=== PATIENT | female | born 1980 | race Caucasian/White ===

== ENCOUNTER 2022-05-21 08:50 | Emergency (ER) | payer OTHER, SELFPAY ==
[2022-05-21 09:04] VITALS: BP 147/89; PULSE 102; RESP 16; TEMP 36.1; O2SAT 100
--- NOTE | 2022-05-21 09:38 | ED.GENADULT ---
HPI - General Adult General Chief complaint: Nausea/Vomiting/Diarrhea Stated complaint: vomitting, nausea, sore throat Time Seen by Provider: 05/21/22 09:38 Source: patient, RN notes reviewed and old records reviewed Mode of arrival: ambulatory Limitations: no limitations History of Present Illness HPI narrative: 41-year-old female presents to [facility] with complaints of one week ago and had nausea and vomiting with some mild upper epigastric discomfort. Patient states that abdominal pain has generally subsided will occasionally get cramping sensation in upper left abdomen area. Patient reports that she has mild sore throat and continues to have intermittent nausea. Patient reports that she has had multiple strep exposures and concerned for strep throat. Patient also reports some seasonal allergies but has not started back on her Flonase. MD complaint: sore throat, nausea Onset (ago): week(s) (1) Related Data Allergies Allergy/AdvReac Type Severity Reaction Status Date / Time Penicillins Allergy Unknown Verified 05/21/22 09:26 Review of Systems Review of Systems: CONSTITUTIONAL: Denies fever, chills, or sweats. EYES: Denies visual changes, redness, or discharge. ENT: Reports rhinorrhea,mild congestion, sore throat, no otalgia. CARDIOVASCULAR: Denies chest pain, palpitations, or edema. RESPIRATORY: Denies cough or dyspnea. GASTROINTESTINAL: Denies abdominal pain at present previous episodes of upper epigastric discomfort , positive for nausea, no recent vomiting, no diarrhea. GENITOURINARY: Denies dysuria or hematuria. SKIN: Denies rash or itching. MUSCULOSKELETAL: Denies back pain, joint pain, or myalgia. NEUROLOGIC: Denies headache, numbness, or weakness. PSYCHIATRIC: Denies anxiety or depression. All systems reviewed & are unremarkable except as noted in HPI and below [facility] Past Medical History Medical History (Updated 05/22/22 @ 09:02 by Svetlana Sahu NP) Seasonal allergies Surgical History Surgical History (Updated 05/21/22 @ 09:55 by Svetlana Sahu NP) Hx of lymph node excision right neck Social History Social History (Updated 05/21/22 @ 09:53 by Svetlana Sahu NP) Smoking status: Never smoker Alcohol intake: current Alcohol use details: rare social Substance use: never Substance use type: does not use Gender identity (if verbalized by the patient): Female Comments At time of signature, agree with nursing past medical, surgical, social and family history. There is no relevant family history pertinent to the presenting complaint Exam Narrative: GENERAL: Well-appearing, well-nourished, and in no acute distress. HEAD: Normocephalic, atraumatic. EYES: PERRLA and EOMI. ENT: Nares with mild redness,clear rhinorrhea no epistaxis. Mucous membranes moist.TM's normal with good light reflex, throat with some redness no tonsil enlargement, post nasal drainage present. NECK: Supple.no lymphadenopathy CHEST: Clear to auscultation. No respiratory distress.SAO2 100% on room air HEART: Regular rate and rhythm. No murmur heard. Normal peripheral pulses. ABDOMEN: Soft, nontender to palpation, nondistended, normal active bowel sounds.nausea with no recent vomiting EXTREMITIES: Normal range of motion. No edema. SKIN: Warm, dry, no rash. NEURO: No focal deficits. Alert and oriented x3. Course Course Emergency Course: Patient is aware of diagnosis, understands and agrees to treatment plan.? Anticipatory guidance given.? Patient agrees to follow-up as directed and is aware of reasons to seek care at the emergency department. Portions of this record may have been created with voice recognition software Level of Care: Express Care Visit Vital Signs Vital signs: Vital Signs Temperature 36.1 C L 05/21/22 09:04 Pulse Rate 102 H 05/21/22 09:04 Respiratory Rate 16 05/21/22 09:04 Blood Pressure 147/89 H 05/21/22 09:04 Pulse Oximetry 100 05/21/22 09:04 Oxygen Delivery Room Air 05/21
== END 2022-05-21 10:12 | disposition home or self-care (01) ==
PROVIDERS: Emergency Provider Registered Nurse
DX: J06.9 Acute upper respiratory infection, unspecified (principal); R11.0 Nausea
CPT/HCPCS: 87081; 87880; 99213; G0463

== ENCOUNTER 2022-09-04 11:15 | Emergency (ER) | payer OTHER, SELFPAY ==
[2022-09-04 11:26] VITALS: BP 128/82; PULSE 94; RESP 16; TEMP 36.8; O2SAT 100
--- NOTE | 2022-09-04 11:57 | ED.SKABFB ---
HPI - Skin/Abscess/Foreign Bdy General Chief complaint: Skin/Abscess/Foreign Body Stated complaint: rash Time Seen by Provider: 09/04/22 11:58 Source: patient Mode of arrival: ambulatory Limitations: no limitations History of Present Illness HPI narrative: 42 y/o female presented for c/o red itchy rash to arms and legs for about 3 weeks. Endorses working outside in the weeds and in the yard frequently. States patches of the rash will appear randomly. Taking Benadryl some days. Takes daily allergy medication. Denies lip, tongue, or throat swelling, shortness of breath or wheezing. Denies changes to soap, detergent, lotion, or any other exposures. No one else in the house or any contacts with similar symptoms. Related Data Allergies Allergy/AdvReac Type Severity Reaction Status Date / Time Penicillins Allergy Unknown Verified 09/04/22 11:49 Review of Systems Review of Systems: CONSTITUTIONAL: Denies body aches, fever, chills, or sweats. EYES: Denies visual changes, redness, or discharge. ENT: Denies rhinorrhea, congestion CARDIOVASCULAR: Denies chest pain, palpitations, or edema. RESPIRATORY: Denies cough or dyspnea. GASTROINTESTINAL: Denies abdominal pain, nausea, vomiting, or diarrhea. SKIN: per HPI MUSCULOSKELETAL: Denies back pain, joint pain, or myalgia. NEUROLOGIC: Denies headache, numbness, tingling, or weakness. [facility] Past Medical History Medical History Seasonal allergies Surgical History Surgical History Hx of lymph node excision right neck Social History Social History Smoking status: Never smoker Alcohol intake: current Alcohol use details: rare social Substance use: never Substance use type: does not use Gender identity (if verbalized by the patient): Female Comments At time of signature, I have reviewed and agree with nursing past medical, surgical, social and family history unless otherwise noted. Please see nursing chart for further information. There is no relevant family history pertinent to the presenting complaint Exam Narrative: GENERAL: Well-appearing HEAD: Normocephalic, atraumatic. EYES: conjunctivae clear, and EOMI. ENT: Mucous membranes moist. Oropharynx without edema, erythema or lesions. NECK: Supple. No lymphadenopathy CHEST: Clear to auscultation. HEART: Regular rate and rhythm. SKIN: Warm, dry. Scattered erythematous vesicular rash patches noted over the arms, legs and torso c/w contact dermatitis. Left upper arm with large area of rash. NEURO: Alert and oriented x3. Course Course Emergency Course: Patient is aware of diagnosis, understands and agrees to treatment plan. Anticipatory guidance given. Patient agrees to follow-up as directed and is aware of reasons to seek care at the emergency department. Portions of this record may have been created with voice recognition software Level of Care: Express Care Visit Vital Signs Vital signs: Vital Signs Temperature 98.2 F 09/04/22 11:26 Pulse Rate 94 09/04/22 11:26 Respiratory Rate 16 09/04/22 11:26 Blood Pressure 128/82 09/04/22 11:26 Pulse Oximetry 100 09/04/22 11:26 Temperature 98.2 F 09/04/22 11:26 Pulse Rate 94 09/04/22 11:26 Respiratory Rate 16 09/04/22 11:26 Blood Pressure 128/82 09/04/22 11:26 Pulse Oximetry 100 09/04/22 11:26 Reviewed MDM - Skin/Abscess/Foreign Bdy MDM Narrative Medical decision making narrative: Discussed physical exam findings c/w contact dermatitis likely r/t poison gladis after working outside with weeds often. Advised supportive measures and signs/symptoms to go to the ER. Pt is appropriate for outpt treatment and f/u. Instructed patient to go to nearest ER immediately for any worsening symptoms including but not limited to: fever, spreading rash, pain
== END 2022-09-04 12:10 | disposition home or self-care (01) ==
PROVIDERS: Emergency Provider Nurse Practitioner Family
DX: L25.9 Unspecified contact dermatitis, unspecified cause (principal)
CPT/HCPCS: 99213; G0463

== ENCOUNTER 2023-02-28 17:29 | Emergency (ER) | payer OTHER, SELFPAY ==
[2023-02-28 17:45] VITALS: BP 134/72; PULSE 74; RESP 16; TEMP 36.6; O2SAT 100
--- NOTE | 2023-02-28 18:12 | ED.URI ---
HPI - URI/Sore Throat General Chief Complaint: Upper Respiratory Infection Stated Complaint: Sore Throat Time Seen by Provider: 02/28/23 18:12 Source: patient Mode of arrival: ambulatory Limitations: no limitations History of Present Illness HPI Narrative: 42-year-old female presents with complaint of nasal congestion, postnasal drainage, sore throat for over week. States sore throat worse at night. Took Sudafed but no improvement. Does not take daily antihistamine. Afebrile. All systems reviewed and negative except as noted above. Related Data Allergies Allergy/AdvReac Type Severity Reaction Status Date / Time Penicillins Allergy Unknown Verified 09/04/22 11:49 Review of Systems Review of Systems: CONSTITUTIONAL: Denies fever, chills, or sweats. EYES: Denies visual changes, redness, or discharge. ENT: Reports rhinorrhea, congestion, sore throat. Denies otalgia. CARDIOVASCULAR: Denies chest pain, palpitations, or edema. RESPIRATORY: Denies cough or dyspnea. GASTROINTESTINAL: Denies abdominal pain, nausea, vomiting, or diarrhea. GENITOURINARY: Denies dysuria or hematuria. SKIN: Denies rash or itching. MUSCULOSKELETAL: Denies back pain, joint pain, or myalgia. NEUROLOGIC: Denies headache, numbness, or weakness. PSYCHIATRIC: Denies anxiety or depression. All other systems reviewed are negative, except as documented in HPI. PMFSH Past Medical History Medical History Seasonal allergies Surgical History Surgical History Hx of lymph node excision right neck Social History Social History Smoking status: Never smoker Alcohol intake: current Alcohol use details: rare social Substance use: never Substance use type: does not use Gender identity (if verbalized by the patient): Female Comments At time of signature, agree with nursing past medical, surgical, social and family history. There is no relevant family history pertinent to the presenting complaint. Exam Narrative: GENERAL: This is a well-nourished, well-developed patient, in no apparent distress. HEAD: normocephalic, atraumatic. EYES: PERRL. Sclera clear/white. Vision is grossly intact. EARS: External ears normal, auditory canals clear and without drainage, fluid to left TM with mild erythema. Right TM normal. Hearing grossly intact. NOSE: External nose normal with Clear nasal drainage, erythema to bilateral nares without significant swelling. THROAT: Mucous membranes moist, Mild erythema postnasal drainage. NECK: Neck supple, non-tender without lymphadenopathy, masses or thyromegaly. CARDIOVASCULAR: Regular rate and rhythm without murmurs, gallops, or rubs. RESPIRATORY: Clear to auscultation. Breath sounds equal bilaterally. No wheezes, rales, or rhonchi. SKIN: warm, Dry, intact with no suspicious lesions or rash, good texture and turgor. NEURO: awake, alert, and oriented to person, place and time. There were no obvious focal neurologic abnormalities. EXTREMITIES: No joint tenderness, effusion, or edema noted. Course Course Level of Care: Express Care Visit Vital Signs Vital signs: Vital Signs Temperature 36.6 C 02/28/23 17:45 Pulse Rate 74 02/28/23 17:45 Respiratory Rate 16 02/28/23 17:45 Blood Pressure 134/72 02/28/23 17:45 Pulse Oximetry 100 02/28/23 17:45 Oxygen Delivery Room Air 02/28/23 17:45 Temperature 36.6 C 02/28/23 17:45 Pulse Rate 74 02/28/23 17:45 Respiratory Rate 16 02/28/23 17:45 Blood Pressure 134/72 02/28/23 17:45 Pulse Oximetry 100 02/28/23 17:45 Oxygen Delivery Room Air 02/28/23 17:45 Reviewed MDM - URI/Sore Throat MDM Narrative Medical decision making narrative: Patient is aware of diagnosis, understands and agrees to treatment plan. Anticipatory guidance given. Patient ag
== END 2023-02-28 18:23 | disposition home or self-care (01) ==
PROVIDERS: Emergency Provider Nurse Practitioner Family
DX: H65.02 Acute serous otitis media, left ear (principal); J01.90 Acute sinusitis, unspecified
CPT/HCPCS: 87081; 87880; 99213; G0463

== ENCOUNTER 2023-10-05 08:46 | Emergency (ER) | payer OTHER, SELFPAY ==
[2023-10-05 09:03] VITALS: BP 144/90; PULSE 64; RESP 16; TEMP 36.3; O2SAT 100
--- NOTE | 2023-10-05 09:41 | ED.EAR ---
HPI - Ear Problem General Chief complaint: Ear Stated complaint: ear fluid Time Seen by Provider: 10/05/23 09:42 Source: patient, RN notes reviewed and old records reviewed Mode of arrival: ambulatory Limitations: no limitations History of Present Illness HPI Narrative: patient presents with complaints of cold symptoms last week, she reports many of these are resolving, but she is complaining of some left ear discomfort that began a couple of days ago. She reports that she has been taking Sudafed with poor relief. Does report small amount of nasal congestion and drainage still, but worst symptom now is her left ear. She reports it is not exactly painful, but it feels full. Reports that hearing is muffled. She denies any fever, chills, sweats. She denies body aches. She voices no other concerns or complaints at this time. Related Data Allergies Allergy/AdvReac Type Severity Reaction Status Date / Time Penicillins Allergy Unknown Verified 10/05/23 09:21 Review of Systems Review of Systems: All systems reviewed & are unremarkable except as noted in HPI and below Constitutional: Constitutional: Reports no additional constitutional complaints ENT: Reports system reviewed and no additional complaints, except as documented, Reports as per HPI, Reports otalgia and Reports nasal discharge Cardiovascular: Cardiovascular: Reports no additional cardiovascular complaints Respiratory: Respiratory: Reports no additional respiratory complaints Gastrointestinal: Gastrointestinal: Reports no additional gastrointestinal complaints PMFSH Past Medical History Medical History Seasonal allergies Surgical History Surgical History Hx of lymph node excision right neck Social History Social History Smoking status: Never smoker Alcohol intake: current Alcohol use details: rare social Substance use: never Substance use type: does not use Gender identity (if verbalized by the patient): Female Comments At the time of my signature, I reviewed and agree with the nursing past medical, surgical, social, and family history. There is no relevant family history pertinent to the patient complaint. Exam Const: General: cooperative, no acute distress, alert and awake Orientation/consciousness: oriented to person, oriented to place and oriented to time HENMT: Head: normal to inspection Ears: TM normal on the right and other ( Left TM with fluid noted behind the drum) Face/Nose/Sinus: No sinus tenderness Mouth: Yes oropharynx normal and Yes moist mucous membranes Throat: posterior oropharynx abnormal Resp: Effort & Inspection: normal respiratory effort and able to speak in complete sentences Auscultation: clear to auscultation bilaterally, no crackles, no rales, no rhonchi and no wheezes Cardio: Palpation: normal PMI Rate: regular rate Rhythm: regular rhythm Heart sounds: S1 normal heart sound present and S2 normal heart sound present Neuro: General: oriented to person, oriented to place and oriented to time Cranial nerves: Yes CN's II-XII intact bilaterally Psych: Appearance: grossly normal Thought process: Normal thought process present Insight: Good insight present (Psych) Judgement: Good judgement present (Psych) Course Course Level of Care: Express Care Visit Vital Signs Vital signs: Vital Signs Temperature 97.4 F L 10/05/23 09:03 Pulse Rate 64 10/05/23 09:03 Respiratory Rate 16 10/05/23 09:03 Blood Pressure 144/90 H 10/05/23 09:03 Pulse Oximetry 100 10/05/23 09:03 Oxygen Delivery Room Air 10/05/23 09:03 Temperature 97.4 F L 10/05/23 09:03 Pulse Rate 64 10/05/23 09:03 Respiratory Rate 16 10/05/23 09:03 Blood Pressure 144/90 H 10/05/23 09:03 Pulse Oximetry 100 10/05/23 09:03 Oxygen Delivery Room Air 10/04
== END 2023-10-05 09:52 | disposition home or self-care (01) ==
PROVIDERS: Emergency Provider Nurse Practitioner Family; Referring Provider Emergency Medicine
DX: J06.9 Acute upper respiratory infection, unspecified (principal)
CPT/HCPCS: 99213; G0463

== ENCOUNTER 2024-11-12 10:03 | Emergency (ER) | payer OTHER, SELFPAY ==
--- OUTSIDE RECORDS SUMMARY | 2024-11-12 10:07 | XMS_ITS | Clinical Summary ---
Author Organization [facility] Address [address] [place] [address] Phone Care Team Providers Care Ep Specialist Name Role Phone Provider, None Primary Care Provider Unavailabl e Allergies Active Allergy Reactions Criticality Noted Date Comments Penicillins Rash 02/28/2020 Immunizations Immunization Administration Dates Next Due Covid-19, Mrna, Lnp-s, Pf, 30 Mcg/0.3 Ml Dose (P fizer) 03/20/2020,02/28/2020 Social History Tobacco Use Types Packs/Day Years Used Date Smoking Tobacco: Never Assessed Comments Unknown Sex and Gender Information Value Date Recorded Sex Assigned at Not on file Legal Sex Female 10:22 PM CDT Gender Identity Not on file Sexual Orientation Not on file Plan of Treatment Health Maintenance Due Date Last Done Comments Hepatitis C Virus (HCV) Screening 1982 TdaP Immunization 1982 Pap Smear 06/16/2003 Human Papillomavirus (HPV) Immunization (1 - 3-dose SCDM series) 2009 Cervical Cancer Screening (CCS) 2012 HPV/Cotest 2012 SARS-COV-2 Immunization ( season) 2023 03/20/2020, 02/28/2020 Influenza Immunization (#1) 2024 Respiratory Syncytial Virus (RSV) Immunization (Adult) (1 - 1-dose 75+ series) 2057 DTaP/Tdap/Td Immunization Discontinued 1996, 08/19/1987, 12/21/1983, Additional history exists Hepatitis B Immunization Completed 998, 09/26/1996, 08/27/1996 Meningococcal Immunization (ACWY) Aged Out No longer eligible based on patient's age to complete this topic Pneumococcal Immunization Combined Aged Out No longer eligible based on patient's age to complete this topic Rotavirus Immunization Aged Out No lo nger eligible based on patient's age to complete this topic Care Teams Ep Specialist Relationship Specialty Start Date End Date Provider, None [place] PCP - General 02/29/20
[2024-11-12 10:12] VITALS: BP 140/95; PULSE 81; RESP 18; TEMP 36.4; O2SAT 100
--- NOTE | 2024-11-12 10:28 | ED.EYEPROB ---
HPI - Eye Problem General Chief complaint: Eye Problems Stated complaint: allergic reaction Time Seen by Provider: 11/12/24 10:28 Source: patient, RN notes reviewed and old records reviewed Mode of arrival: ambulatory Limitations: no limitations History of Present Illness HPI Narrative: 44 year old female who presents to [facility] with complaints of left upper eyelid redness with swelling and some swelling below eye which started Tuesday. Patient reports that she was working in the yard on and then was weed eating and spraying on Tuesday and started noting an episode of eye itching. Patient reports that since Tuesday she has noted swelling and redness to upper left eyelid that has been continuous. Patient reports no change in vision, no redness to sclera or any eye drainage MD chief complaint: eye redness (of left upper eyelid) and other (itching and swelling of left upper eyelid) Onset (ago): day(s) (day 3 of symptoms) Eye Symptoms: itching and other (swelling and redness of left upper eyelid) Severity: mild Treatments Prior to Arrival: other (Zohreh) Related Data Home Medications ?Medication ?Instructions ?Recorded ?Confirmed ?Last Taken ?Type multivitamin (Daily Multi-Vitamin 1 tablet PO DAILY 11/12/24 Unknown History tablet) Allergies Allergy/AdvReac Type Severity Reaction Status Date / Time Penicillins Allergy Unknown Verified 11/12/24 10:19 Review of Systems Review of Systems: CONSTITUTIONAL: Denies fever, chills, or sweats. EYES: Denies visual changes. Reports redness,, irritation, swelling of left upper eyelid, no sclera redness or any drainage from left eye ENT: Denies rhinorrhea, congestion, sore throat, or otalgia. CARDIOVASCULAR: Denies chest pain, palpitations, or edema. RESPIRATORY: Denies cough or dyspnea. SKIN: Denies rash or itching. NEUROLOGIC: Denies headache All systems reviewed & are unremarkable except as noted in HPI and below PMFSH Past Medical History Medical History (Updated 11/13/24 @ 07:58 by Svetlana Sahu NP) Seasonal allergies Surgical History Surgical History (Updated 11/13/24 @ 07:52 by Svetlana Sahu NP) [place] teeth extracted Hx of lymph node excision right neck Social History Social History Smoking status: Never smoker Alcohol intake: current Alcohol use details: rare social Substance use: never Substance use type: does not use Gender identity (if verbalized by the patient): Female Comments At time of signature, agree with nursing past medical, surgical, social and family history. There is no relevant family history pertinent to the presenting complaint Exam Narrative: GENERAL: Well-appearing, well-nourished, and in no acute distress. HEAD: Normocephalic, atraumatic. EYES: PERRLA and EOMI.Left upper eyelid red and swollen and feels irritated, minimal swelling under left eye, No periorbital cellulitis noted. Sclera and conjunctivae clear no drainage noted no visual changes or feelings of foreign body to her eye ENT: Nares clear, no rhinorrhea or epistaxis. Mucous membranes moist. NECK: Supple.no lymphadenopathy CHEST: Clear to auscultation. No respiratory distress, SAO2 100% on room air HEART: Regular rate and rhythm. No murmur heard. Normal peripheral pulses. SKIN: Warm, dry, no rash. NEURO: No focal deficits. Alert and oriented x3. Course Course Emergency Course: Patient is aware of diagnosis, understands and agrees to treatment plan. Anticipatory guidance given. Patient agrees to follow-up as directed and is aware of reasons to seek care at the emergency department. Portions of this record may have been created with voice recognition software Level of Care: Express Care Visit Vital Signs Vital signs: Vital Signs Temperature 36.4 C L 11/12/24 10:12 Pulse Rate 81 11/12/24 10:12 Respiratory Rate 18 11/12/24 10:12 Blood Pressure 140/95 H 11/12/24 10:12 Pulse Oximetry 100 11/12/24 10:12 Oxygen Delivery Room Air 11/12/24 10:12 Temperature 36.4 C L 11/12/24 10:12 Pulse Rate 81 11/12/24 10:12 Respiratory Rate 18 11/12/24 10:12 Blood Pressure 140/95 H 11/12/24 10:12 Pulse Oximetry 11/12/24 10:12 Oxygen Delivery Room Air 11/12/24 10:12 Reviewed MDM - Eye Problem MDM Narrative Medical decision making narrative: Consideration of the following conditions may be warranted for the presenting problem, they are not final diagnoses: Bacterial conjunctivitis, allergic conjunctivitis, viral conjunctivitis, foreign body, blepharitis, chalazion, hordeolum, corneal abrasion.? Exam findings show no acute concerns or changes; patient is non-toxic appearing and is in no distress.? Patient is appropriate for outpatient treatment and follow-up. Differential Diagnosis Differential diagnosis: Likely conjunctivitis and other (swelling and irritation with redness left upper eyelid) Medical Records Attestation: I reviewed the patient's medical records. Critical Care Time Critical Care Time Critical Care Time: No Discharge Plan Discharge Clinical Impression: Eyelid dermatitis, allergic/contact Swelling of left eyelid Qualifiers: Eyelid: upper Qualified Code(s): H02.844 - Edema of left upper eyelid Patient Disposition: Home Condition: Stable Instructions: Antibiotic Form, Eyelid Swelling (ED) Additional Instructions: Cold compresses to the eyes for comfort May need warm compresses to remove debris in the morning When cleaning the eyes used a washcloth in one direction then change washcloths or use a cotton ball in one direction and then his cotton balls Eyedrops as directed--may be more soothing if left in the refrigerator Do not share medicine--do not touch the eye with the medicine Tylenol or ibuprofen for pain Avoid screen time--television, computer, tablet or phone. Also no reading or driving Follow-up with PCP or civil project engineer as directed Daily Zyrtec, Claritin or Zohreh daily If your symptoms persist, change or worsen significantly before you can contact your personal physician then please, without delay, go to the emergency department for further evaluation. Follow-up with PCP in 7-10 days or sooner if needed Follow up with PCP soon in regards to your blood pressure which is elevated above threshold for referral. Blood pressure above 120/80 may indicate pre-hypertension. Do not wear contacts while using eye drops Patient Language: Bulgarian Prescriptions: New ofloxacin 0.3 % drops See Rx Instructions .ROUTE .COMPLEX Qty: 10 0RF Rx Instructions: put 1-2 drps into affected eye(s) every 2-4 h x 2 days, then 1-2 drps 4 times/day days 3-7 methylprednisolone [Medrol (Bob)] 4 mg tablets,dose pack See Rx Instructions .ROUTE .COMPLEX Qty: 21 0RF Rx Instructions: orally per package directions No Action multivitamin [Daily Multi-Vitamin] Tablet 1 tablet PO DAILY Follow-up/Referrals: PHYSICIAN,PODODERMATOLOGIST [Primary Care Provider, Internal Medicine] Time of Disposition: 10:41 Quality Maria Coma Scale Eyes: Open Verbal: Oriented and Alert Motor: Follows Commands Maria Coma Total Score: 15
== END 2024-11-12 10:49 | disposition home or self-care (01) ==
PROVIDERS: Emergency Provider Registered Nurse
DX: H01.9 Unspecified inflammation of eyelid (principal); H02.844 Edema of left upper eyelid
CPT/HCPCS: 99213; G0463